=== PATIENT | male | born 1970 | race Caucasian/White ===

== ENCOUNTER 2016-10-21 22:35 | Emergency (ER) | payer MEDICARE, MEDICAID ==
[2016-10-22] MEDS ORDERED: AZITHROMYCIN 250 MG TABLET PO ONE (00:46)
[2016-10-22] MEDS ORDERED: AZITHROMYCIN 250 MG TABLET ONE (00:48)
[2016-10-22 00:54] VITALS: BP 152/82
--- OUTSIDE RECORDS SUMMARY | 2016-10-22 00:58 | XMS REPORT | Continuity of Care Document ---
:1970 Author Organization [employer] Address [place] [address] Care Team Providers Name Role Phone Unavailable Primary Care Provider Unavailable Source Comments This disclosure is being made pursuant to the [employer] program and maynot contain all information available regarding this patient.[employer] Active Allergies and Adverse Reactions Not on File Current Medications Be aware that medications may not be up to date as of this document. Alwaysverify current medications with the patient. Not on file Active Problems Not on file Social History Tobacco Use Types Packs/Day Years Used Date Never Assessed Plan of Care Health Maintenance Due Date Last Done Comments Tetanus/Pertussis (1 - Tdap) 1991 Retired-INFLUENZA VACCINE 04/09/2015 Results from Last 3 Months Not on file
--- NOTE | 2016-10-22 05:48 | ERNOTE ---
Time Seen by Provider: 10/22/16 00:36 Stated Complaint: FLU LIKE ILLNESS Immunizations: IMMUNIZATION HX Immunizations Up to Date Yes History of Influenza Vaccine No Hx Pneumococcal Vaccination No Allergies/Adverse Reactions: Allergies penicillin G Adverse Reaction (Verified 10/21/16 22:58) Home Medications: HOME MEDICATIONS NK [No Home Medication] 10/21/16 [Last Taken Unknown] - History of Present Ilness Narrative: Cough and congestion and pain in facial region for two days. has not taken any meds. no fevers but feels sick. still continues to smoke daily Review of Systems - Review of Systems Constitutional: Present: chills, fatigue, malaise EYE: Present: no symptoms reported ENT: Present: nose congestion Respiratory: Present: cough Cardiology: Present: no symptoms reported Gastrointestinal/Abdominal: Present: no symptoms reported - Patient's Past Medical History Patient History - Medical: Migraines Patient History - Cardiac/Respiratory: No pertinent hx Patient History - Cancer: No Hx of Cancer Patient History - Surgical Procedures: Cholecystectomy, Other Patient History - Other: None - Social History Living Situations: home Abuse History: No History of abuse Psych History: No pertinent hx Smoking Status: Current every day smoker Alcohol Use: none Drug Use: none - Immunizations Immunizations Up to Date: Yes Hx Pneumococcal Vaccination: No History of Influenza Vaccine: No Physical Exam - Physical Exam General Appearance: Present: wd/wn, alert, no apparent distress Ears, Nose, Throat: Present: normal ENT inspection Neck: Present: normal inspection, nontender Respiratory: Present: no respiratory distress - when patient takes a deep breath , it leads to a deep cough, normal breath sounds, no accessory muscle use, chest nontender, lungs clear Cardiovascular/Chest: Present: regular rate, rhythm, no murmur, normal peripheral pulses ED Progress - Vital Signs Patient's Vital Signs:: I have reviewed the patient's vital signs. Vital Signs: Vital Signs 10/21/16 10/22/16 22:45 00:53 Temperature 37.9 C H 37.9 C H Pulse Rate 111 H 100 Respiratory 18 18 Rate Blood Pressure 161/85 152/82 O2 Sat by Pulse 97 97 Oximetry - Progress/Reassessment Chief Complaint: Upper Respiratory Symptoms Departure - Departure Clinical Impression: Bronchitis Disposition: Home self-care Condition: Good Instructions: Bronchospasm, Adult
== END 2016-10-22 00:57 | disposition home or self-care (01) ==
LOC: ER 22:35
DX: J40 Bronchitis, not specified as acute or chronic (principal); Z72.0 Tobacco use

== ENCOUNTER 2016-11-02 18:26 | Emergency (ER) | payer MEDICARE, MEDICAID ==
[2016-11-02 19:03] VITALS: BP 162/103
[2016-11-02] MEDS ORDERED: KETOROLAC TROMETHAMINE 60 MG/2 ML VIAL IM ONE ×2 (19:52→19:58)
[2016-11-02] MEDS ORDERED: DOXYCYCLINE HYCLATE 100 MG TABLET PO ONE (19:56)
--- OUTSIDE RECORDS SUMMARY | 2016-11-02 19:57 | XMS REPORT | Continuity of Care Document ---
:1970 Author Organization [email or web address] Address [place] [address] Care Team Providers Name Role Phone Unavailable Primary Care Provider Unavailable Source Comments This disclosure is being made pursuant to the [employer] program and maynot contain all information available regarding this patient.[email or web address] Active Allergies and Adverse Reactions Not on [...]
[2016-11-02] MEDS ORDERED: DOXYCYCLINE HYCLATE 100 MG TABLET ONE (19:58)
--- NOTE | 2016-11-02 20:11 | ERNOTE ---
Date of Service: 11/02/16 Time Seen by Provider: 11/02/16 19:45 Stated Complaint: SINUS ISSUES Presenting Symptoms:: other - facial pain, ear pain Source: patient Exam Limitations: no limitations Immunizations: IMMUNIZATION HX Immunizations Up to Date Yes History of Influenza Vaccine No Hx Pneumococcal Vaccination No Allergies/Adverse Reactions: Allergies penicillin G Adverse Reaction (Verified 11/02/16 19:03) Home Medications: HOME MEDICATIONS Doxycycline Hyclate [Morgidox] 100 mg PO BID #20 capsule 11/02/16 [Last Taken Unknown] - History of Present Ilness Narrative: 46-year-old male presenting to the emergency room for sinus pain. States he was here 10 days ago and received a Z-Tai and he still continues to pain complain of sinus pain and ear pain and now he has strong teeth pain. States he did complete his antibiotic as prescribed and still has sinus pain. Date (Duration): 11/02/16 Timing: constant, getting worse Severity: mild Modifying Factors - Improves: Reports: nothing Modifying Factors - Worsens: Reports: activity Associated Symptoms: Reports: facial pain, nasal congestion, earache, headache. Denies: chest pain/soreness, cough, shortness of breath, nasal drainage, sore throat, fever/chills Prior Treatment: Reports: recently seen, treated by physician Review of Systems - Review of Systems Constitutional: Present: no symptoms reported EYE: Present: see HPI, eye pain ENT: Present: See HPI, ear pain Respiratory: Present: no symptoms reported Cardiology: Present: no symptoms reported Gastrointestinal/Abdominal: Present: no symptoms reported Genitourinary: Present: no symptoms reported Musculoskeletal: Present: no symptoms reported Skin: Present: no symptoms reported Neurological: Present: no symptoms reported Endocrine: Present: no symptoms reported Hematologic/Lymphatic: Present: no symptoms reported Psych: Present: no symptoms reported - Patient's Past Medical History Patient History - Medical: Arthritis, Migraines, Other Patient History - Cardiac/Respiratory: No pertinent hx, Hypertension Patient History - Cancer: No Hx of Cancer Patient History - Surgical Procedures: Cholecystectomy, Other Patient History - Other: None - Social History Living Situations: home Abuse History: No History of abuse Psych History: No pertinent hx Smoking Status: Current every day smoker Have you smoked in the past 12 months: Yes Do you dip or chew tobacco: No Alcohol Use: none Drug Use: none - Immunizations Immunizations Up to Date: Yes Hx Pneumococcal Vaccination: No History of Influenza Vaccine: No Physical Exam - Physical Exam Narrative: 46-year-old male presenting to the emergency room for sinusitis. Patient has pain to sinus areas in the front of his face, pain around his ears, teeth and jaw are sensitive to pain and pressure also has pain and pressure and cheekbones General Appearance: Present: wd/wn, alert, no apparent distress Eye Exam: Sclera injection: left Ears, Nose, Throat: Present: sinus pain/drainage. Absent: nasal congestion, pharyngeal erythema, dry mucous membranes Neck: Present: lymphadenopathy (L) Respiratory: Present: no respiratory distress, normal breath sounds, lungs clear Cardiovascular/Chest: Present: regular rate, rhythm, no murmur Gastrointestinal/Abdominal: Present: normal bowel sounds Extremity Exam: Present: normal inspection Neurological Exam: Present: alert, oriented, normal mood/affect Skin Exam: Present: normal color, warm/dry ED Progress - Vital Signs Patient's Vital Signs:: I have reviewed the patient's vital signs. Vital Signs: Vital Signs 11/02/16 18:55 Temperature 37.5 C Pulse Rate 87 Respiratory 16 Rate Blood Pressure 162/103 O2 Sat by Pulse 97 Oximetry - Progress/Reassessment Chief Complaint: Upper Respiratory Symptoms Progress:: Improved Departure - Departure Clinical Impression: Sinusitis Qualifiers: Sinusitis location: frontal Chronicity: acute Recurrence: recurrent Qualified Code(s): J01.11 - Acute recurrent frontal sinusitis Disposition: Home Follow Up Needed Condition: Stable Instructions: Sinus Headache, [id number], Sinusitis, Adult, [id number] Prescriptions: Doxycycline Hyclate [Morgidox] 100 mg PO BID #20 capsule
== END 2016-11-02 20:16 | disposition home or self-care (01) ==
LOC: ER 18:26
DX: J01.11 Acute recurrent frontal sinusitis (principal); F17.210 Nicotine dependence, cigarettes, uncomplicated

== ENCOUNTER 2017-04-21 11:06 | Emergency (ER) | payer MEDICARE, MEDICAID ==
[2017-04-21 11:32] VITALS: BP 179/109
--- NOTE | 2017-04-21 11:55 | ERNOTE ---
Psychological HPI - General Chief Complaint: Psychiatric Problem Source: Reports: patient Exam Limitations: Reports: no limitations - Immun/Allergies/Home Medications Allergies/Adverse Reactions: Allergies penicillin G Adverse Reaction (Verified 11/02/16 19:03) Home Medications: HOME MEDICATIONS Lorazepam [Ativan] 2 mg PO TID #30 tablet 04/21/17 [Last Taken Unknown] - History of Present Illness Narrative: here for feeling anxious and hopeless. Patient feels depressed he feels that he cannot cope with issues of life. He denies being suicidal at this time. However he expresses the fact that he needs psychological and psychiatric help. Time Seen by Provider: 04/21/17 11:33 Review of Systems - Review of Systems Constitutional: Present: no symptoms reported EYE: Present: no symptoms reported ENT: Present: no symptoms reported Respiratory: Present: no symptoms reported Cardiology: Present: no symptoms reported Gastrointestinal/Abdominal: Present: no symptoms reported Genitourinary: Present: no symptoms reported Musculoskeletal: Present: no symptoms reported Skin: Present: no symptoms reported Neurological: Present: no symptoms reported Psych: Present: depressed - Patient's Past Medical History Patient History - Medical: Arthritis, Migraines, Other Patient History - Cardiac/Respiratory: No pertinent hx, Hypertension Patient History - Cancer: No Hx of Cancer Patient History - Surgical Procedures: Cholecystectomy, Other Patient History - Other: None - Social History Living Situations: alone Abuse History: No History of abuse Psych History: No pertinent hx Smoking Status: Current every day smoker Have you smoked in the past 12 months: No Alcohol Use: none Drug Use: none - Immunizations Immunizations Up to Date: No Hx Pneumococcal Vaccination: No History of Influenza Vaccine: No Psychological Exam - Exam General Appearance: Present: wd/wn, alert, no apparent distress Head Exam: Present: normal inspection, no evidence of injury Respiratory: Present: no respiratory distress, normal breath sounds, no accessory muscle use, chest nontender, lungs clear Cardiovascular/Chest: Present: regular rate, rhythm, no murmur, normal peripheral pulses ED Progress - Vital Signs Patient's Vital Signs:: I have reviewed the patient's vital signs. Vital Signs: Vital Signs 04/21/17 11:28 Temperature 37.0 C Pulse Rate 96 Respiratory 22 H Rate Blood Pressure 179/109 O2 Sat by Pulse 96 Oximetry - Progress/Reassessment Chief Complaint: Psychiatric Problem Plan - Plan Plan: pt has depression and anxiety but he is not suicidal doctor Donna was kind enough to present to the emergency room and do an extensive consult on this patient he suggested Ativan 2 mg 3 times a day to treat symptoms and he will see the patient in his office on a regular basis. Departure Clinical Impression: Depression Qualifiers: Depression Type: major depressive disorder Major depression recurrence: recurrent Active/Remission status: currently active Major depression episode severity: severe Psychotic features: without psychotic features Qualified Code(s ): F33.2 - Major depressive disorder, recurrent severe without psychotic features Clinical Impression: (Ruled Out): Metatarsal fracture - Departure Disposition: Home self-care Condition: Good Instructions: Panic Attacks, [id number] Prescriptions: Lorazepam [Ativan] 2 mg PO TID #30 tablet
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
== END 2017-04-21 12:29 | disposition home or self-care (01) ==
LOC: ER 11:06
DX: F33.2 Major depressive disorder, recurrent severe without psychotic features (principal); F17.200 Nicotine dependence, unspecified, uncomplicated